=== PATIENT | male | born 1975 | race Caucasian/White ===

== ENCOUNTER 2017-11-27 17:23 | Inpatient (IN) | payer OTHER ==
[~2017-11-27] VITALS: Ht 185.4 cm; Wt 90.7 kg
[2017-11-27] MEDS ORDERED: THIAMINE HCL 200 MG/2 ML VIAL IM ONE (20:30)
[2017-11-27] MEDS ORDERED: LORAZEPAM 1 MG TABLET PO PRN ×2 (20:30)
[2017-11-27] MEDS ORDERED: ONDANSETRON 4 MG/2 ML VIAL IM PRN (20:30)
[2017-11-27] MEDS ORDERED: ACETAMINOPHEN 325 MG TABLET PO PRN (20:30)
[2017-11-27] MEDS ORDERED: MAGNESIUM HYDROXIDE 30 ML LIQUID UDC PO PRN (20:30)
[2017-11-27] MEDS ORDERED: MAG HYDROX/AL HYDROX/SIMETH 30 ML LIQUID UDC PO PRN (20:30)
[2017-11-27] MEDS ORDERED: ONDANSETRON ODT 4 MG TAB.RAPDIS SL PRN (20:30)
[2017-11-27] MEDS ORDERED: LORAZEPAM 2 MG/1 ML VIAL IM PRN (20:30)
[2017-11-27] MEDS ORDERED: LOPERAMIDE HCL 2 MG CAPSULE PO PRN ×2 (20:30)
[2017-11-27] MEDS ORDERED: MIRALAX 17 GM POWD.PACK PO PRN (20:30)
[2017-11-27] MEDS ORDERED: DICYCLOMINE HCL 20 MG TABLET PO PRN (20:30)
[2017-11-27 20:56] LABS: BASOPHILS # (AUTO) 0.1 K/uL (0.0-8.0); BASOPHILS % (AUTO) 1.2 % (0.0-2.0); EOSINOPHILS # (AUTO) 0.1 K/uL (0.0-0.7); EOSINOPHILS % (AUTO) 1.7 % (0.0-7.0); HEMATOCRIT 43.8 % (36.7-47.1); HEMOGLOBIN 15.4 g/dL (12.5-16.3); LYMPHOCYTES # (AUTO) 2.1 K/uL (20.0-40.0); LYMPHOCYTES % (AUTO) 44.2 % (20.5-51.5); MEAN CORPUSCULAR HEMOGLOBIN 34.3 uug (23.8-33.4); MEAN CORPUSCULAR HGB CONC 35 g/dL (32.5-36.3); MEAN CORPUSCULAR VOLUME 97.4 fL (73.0-96.2); MONOCYTES # (AUTO) 0.5 K/uL (2.0-10.0); NEUTROPHILS % (AUTO) 41.9 % (38.5-71.5); PLATELET COUNT (AUTO) 277 K/uL (152-348); WHITE BLOOD COUNT (AUTO) 4.8 K/uL (3.6-10.2)
[2017-11-27] MEDS ORDERED: HYDR25TA4 PO (21:01)
[2017-11-27 21:06] LABS: BILIRUBIN,TOTAL 0.3 mg/dL (0.2-1.0); CREATININE 1.1 mg/dL (0.6-1.3); MAGNESIUM 2.1 mg/dL (1.8-2.4); POTASSIUM 3.8 mmol/L (3.5-5.1); TOTAL PROTEIN, SERUM 8.3 g/dL (6.4-8.2)
[2017-11-27 21:09] LABS: *AMPHETAMINE, URINE NEGATIVE (NEGATIVE); *BARBITURATE, URINE NEGATIVE (NEGATIVE); *CANNABINOID, URINE NEGATIVE (NEGATIVE); *COCCAINE, URINE NEGATIVE (NEGATIVE); *OPIATE, URINE NEGATIVE (NEGATIVE); *PHENCYCLIDINE SCREEN,URINE NEGATIVE (NEGATIVE)
[2017-11-27] MEDS: CLONIDINE HCL 0.1 MG TABLET PO PRN (21:57)
[2017-11-27] MEDS ORDERED: CLONIDINE HCL 0.1 MG TABLET ONE (22:10)
[2017-11-27] MEDS ORDERED: THIAMINE HCL 200 MG/2 ML VIAL ONE (22:10)
[2017-11-28] VITALS: BP 125/65
[2017-11-28 04:00] VITALS: BP 142/93
[2017-11-28 08:30] VITALS: BP 157/98
[2017-11-28] MEDS ORDERED: TUBERCULIN,PURIF.PROT.DERIV. 5 TU/0.1 ML TEST ID ONE (09:00)
[2017-11-28] MEDS: LORAZEPAM 1 MG TABLET PO SCH ×4 (09:04→20:39)
[2017-11-28] MEDS: THIAMINE HCL 100 MG TABLET PO SCH (09:04)
[2017-11-28] MEDS: FOLIC ACID 1 MG TABLET PO SCH (09:04)
[2017-11-28] MEDS: MULTIVITAMINS,THERAPEUTIC TABLET PO SCH (09:04)
[2017-11-28] MEDS: HYDROCHLOROTHIAZIDE 25 MG PO SCH (09:44)
[2017-11-28 12:25] VITALS: BP 158/106
[2017-11-28] MEDS: CLONIDINE HCL 0.1 MG TABLET PO PRN (12:39)
[2017-11-28] MEDS ORDERED: hydrALAZINE HCL 50 MG TABLET PO PRN (13:45)
[2017-11-28 16:57] VITALS: BP 151/89
[2017-11-28 20:37] VITALS: BP 125/84
[2017-11-29 00:41] VITALS: BP 146/89
[2017-11-29 04:15] VITALS: BP 128/86
[2017-11-29 08:56] VITALS: BP 123/96
[2017-11-29] MEDS: THIAMINE HCL 100 MG TABLET PO SCH (09:02)
[2017-11-29] MEDS: LORAZEPAM 1 MG TABLET PO SCH ×3 (09:02→20:09)
[2017-11-29] MEDS: MULTIVITAMINS,THERAPEUTIC TABLET PO SCH (09:02)
[2017-11-29] MEDS: HYDROCHLOROTHIAZIDE 25 MG PO SCH (09:02)
[2017-11-29] MEDS: FOLIC ACID 1 MG TABLET PO SCH (09:02)
[2017-11-29 11:08] LABS: HEPATITIS B SURFACE AG Negative (Negative)
[2017-11-29] MEDS: CLONIDINE HCL 0.1 MG TABLET PO PRN (13:27)
[2017-11-29 13:38] VITALS: BP 158/106
[2017-11-29 16:58] VITALS: BP 141/89
[2017-11-29 20:06] VITALS: BP 129/94
[2017-11-29] MEDS: IBUPROFEN 400 MG TABLET PO PRN (20:12)
[2017-11-29] MEDS ORDERED: LORAZEPAM 1 MG TABLET PO ONE (20:45)
[2017-11-29] MEDS: GUAIFENESIN SUGAR FREE 100 MG/5 ML UDC PO PRN (20:56)
[2017-11-29] MEDS ORDERED: LORAZEPAM 1 MG TABLET PO PRN (21:30)
[2017-11-30 00:27] VITALS: BP 127/78
[2017-11-30 04:17] VITALS: BP 122/81
[2017-11-30] MEDS: GUAIFENESIN SUGAR FREE 100 MG/5 ML UDC PO PRN ×2 (08:18→20:59)
[2017-11-30] MEDS: IBUPROFEN 400 MG TABLET PO PRN (08:19)
[2017-11-30] MEDS: FOLIC ACID 1 MG TABLET PO SCH (08:19)
[2017-11-30] MEDS: THIAMINE HCL 100 MG TABLET PO SCH (08:20)
[2017-11-30] MEDS: CLONIDINE HCL 0.1 MG TABLET PO PRN (08:20)
[2017-11-30 08:26] VITALS: BP 151/98
[2017-11-30] MEDS ORDERED: LORAZEPAM 1 MG TABLET PO SCH ×2 (09:00→21:00)
[2017-11-30] MEDS: MULTIVITAMINS,THERAPEUTIC TABLET PO SCH (09:16)
[2017-11-30] MEDS: HYDROCHLOROTHIAZIDE 25 MG PO SCH (09:16)
[2017-11-30 12:38] VITALS: BP 144/100
[2017-11-30] MEDS: LORAZEPAM 1 MG TABLET PO SCH ×2 (12:41→16:01)
[2017-11-30 16:34] VITALS: BP 133/88
[2017-11-30 20:00] VITALS: BP 123/92
[2017-11-30] MEDS: GABAPENTIN 100 MG CAPSULE PO SCH (20:58)
[2017-12-01] VITALS: BP 139/89
[2017-12-01 04:15] VITALS: BP 135/85
[2017-12-01 08:00] VITALS: BP 123/87
[2017-12-01] MEDS: GABAPENTIN 100 MG CAPSULE PO SCH (08:18)
[2017-12-01] MEDS: MULTIVITAMINS,THERAPEUTIC TABLET PO SCH (08:18)
[2017-12-01] MEDS: THIAMINE HCL 100 MG TABLET PO SCH (08:18)
[2017-12-01] MEDS: LORAZEPAM 1 MG TABLET PO SCH ×3 (08:18→20:25)
[2017-12-01] MEDS: FOLIC ACID 1 MG TABLET PO SCH (08:18)
[2017-12-01] MEDS: HYDROCHLOROTHIAZIDE 25 MG PO SCH (08:18)
[2017-12-01] MEDS: BENZOCAINE/MENTH/CETYLPYRD LOZENGE MM PRN (08:22)
[2017-12-01] MEDS: GUAIFENESIN SUGAR FREE 100 MG/5 ML UDC PO PRN (08:22)
[2017-12-01 12:00] VITALS: BP 132/92
[2017-12-01] MEDS: GUAIFENESIN LA 600 MG TABLET.SA PO PRN ×2 (14:13→20:25)
[2017-12-01 16:00] VITALS: BP 111/71
[2017-12-01 20:00] VITALS: BP 146/86
[2017-12-01] MEDS: GABAPENTIN 300 MG CAPSULE PO SCH (20:24)
[2017-12-01] MEDS: IBUPROFEN 400 MG TABLET PO PRN (20:24)
[2017-12-01] MEDS: PRAZOSIN HCL 1 MG CAPSULE PO SCH (20:25)
[2017-12-02] VITALS: BP 138/84
[2017-12-02 04:00] VITALS: BP 128/88
[2017-12-02] MEDS: GUAIFENESIN SUGAR FREE 100 MG/5 ML UDC PO PRN ×3 (06:28→20:53)
[2017-12-02 08:00] VITALS: BP 125/82
[2017-12-02] MEDS: LORAZEPAM 1 MG TABLET PO SCH ×2 (08:35→20:52)
[2017-12-02] MEDS: FOLIC ACID 1 MG TABLET PO SCH (08:35)
[2017-12-02] MEDS: GABAPENTIN 300 MG CAPSULE PO SCH ×2 (08:35→20:52)
[2017-12-02] MEDS: MULTIVITAMINS,THERAPEUTIC TABLET PO SCH (08:35)
[2017-12-02] MEDS: HYDROCHLOROTHIAZIDE 25 MG PO SCH (08:35)
[2017-12-02] MEDS: THIAMINE HCL 100 MG TABLET PO SCH (08:35)
[2017-12-02 12:00] VITALS: BP 128/88
[2017-12-02] MEDS: FLUTICASONE PROP NASAL SPRAY 16 GM BOTTLE NS SCH (12:41)
[2017-12-02] MEDS: LORATADINE 10 MG TABLET PO SCH (12:41)
[2017-12-02 16:00] VITALS: BP 130/81
[2017-12-02 20:00] VITALS: BP 128/78
[2017-12-02] MEDS: PRAZOSIN HCL 1 MG CAPSULE PO SCH (20:52)
[2017-12-03] VITALS: BP 138/90
[2017-12-03 04:00] VITALS: BP 125/87
[2017-12-03 08:00] VITALS: BP 116/81
[2017-12-03] MEDS: GABAPENTIN 300 MG CAPSULE PO SCH ×2 (08:09→21:04)
[2017-12-03] MEDS: BENZOCAINE/MENTH/CETYLPYRD LOZENGE MM PRN (08:09)
[2017-12-03] MEDS: MULTIVITAMINS,THERAPEUTIC TABLET PO SCH (08:09)
[2017-12-03] MEDS: THIAMINE HCL 100 MG TABLET PO SCH (08:09)
[2017-12-03] MEDS: FOLIC ACID 1 MG TABLET PO SCH (08:09)
[2017-12-03] MEDS: HYDROCHLOROTHIAZIDE 25 MG PO SCH (08:09)
[2017-12-03] MEDS: LORATADINE 10 MG TABLET PO SCH (08:09)
[2017-12-03] MEDS: FLUTICASONE PROP NASAL SPRAY 16 GM BOTTLE NS SCH (08:10)
[2017-12-03] MEDS ORDERED: LORAZEPAM 1 MG TABLET PO SCH (09:00)
[2017-12-03 12:00] VITALS: BP 125/88
[2017-12-03 16:00] VITALS: BP 139/96
[2017-12-03] MEDS ORDERED: CLON0.1T14 PO (19:54)
[2017-12-03] MEDS ORDERED: GABA-534 PO (19:54)
[2017-12-03] MEDS ORDERED: IBUP-1953 PO (19:54)
[2017-12-03 20:00] VITALS: BP 134/98
[2017-12-03] MEDS: PRAZOSIN HCL 1 MG CAPSULE PO SCH (21:04)
[2017-12-03] MEDS: GUAIFENESIN SUGAR FREE 100 MG/5 ML UDC PO PRN (21:05)
[2017-12-04] VITALS: BP 128/89
[2017-12-04 04:00] VITALS: BP 130/87
[2017-12-04 08:00] VITALS: BP 138/87
[2017-12-04] MEDS: MULTIVITAMINS,THERAPEUTIC TABLET PO SCH (08:05)
[2017-12-04] MEDS: THIAMINE HCL 100 MG TABLET PO SCH (08:05)
[2017-12-04] MEDS: FLUTICASONE PROP NASAL SPRAY 16 GM BOTTLE NS SCH (08:05)
[2017-12-04] MEDS: HYDROCHLOROTHIAZIDE 25 MG PO SCH (08:05)
[2017-12-04] MEDS: LORATADINE 10 MG TABLET PO SCH (08:05)
[2017-12-04] MEDS: FOLIC ACID 1 MG TABLET PO SCH (08:05)
[2017-12-04] MEDS: GABAPENTIN 300 MG CAPSULE PO SCH (08:06)
== END 2017-12-04 09:35 | disposition other institution (70) | DRG 895 ==
LOC: SRC 19:58
PROVIDERS: ADMIT Internal Medicine; ATTEND Internal Medicine
PROC: HZ2ZZZZ Detoxification Services for Substance Abuse Treatment (ICD-10-PCS; principal; 2017-11-27)
PROC: HZ41ZZZ Group Counseling for Substance Abuse Treatment, Behavioral (ICD-10-PCS; 2017-11-28)
PROC: HZ31ZZZ Individual Counseling for Substance Abuse Treatment, Behavioral (ICD-10-PCS; 2017-11-30)
PROC: HZ59ZZZ Individual Psychotherapy for Substance Abuse Treatment, Supportive (ICD-10-PCS; 2017-12-01)
DX: F10.232 Alcohol dependence with withdrawal with perceptual disturbance (principal); K70.10 Alcoholic hepatitis without ascites; I15.9 Secondary hypertension, unspecified; E78.5 Hyperlipidemia, unspecified; Z81.1 Family history of alcohol abuse and dependence; Z82.0 Family history of epilepsy and other diseases of the nervous system; Y90.6 Blood alcohol level of 120-199 mg/100 ml; F17.220 Nicotine dependence, chewing tobacco, uncomplicated; F51.4 Sleep terrors [night terrors]; J02.9 Acute pharyngitis, unspecified; J20.8 Acute bronchitis due to other specified organisms; G47.00 Insomnia, unspecified
CPT/HCPCS: 36415; 70030-TC; 80307; 83735; 85025; 86403; 86580; 86592; 86705; 86803; 87070; 87340; 87400; 87806; A4663; G0480; J3411; J3535